=== PATIENT | female | born 1965 | race Caucasian/White ===

== ENCOUNTER 2018-12-18 23:01 | Emergency (ER) | payer BC ==
[2018-12-19] MEDS: CYCLOBENZAPRINE 10 MG TAB PO (01:27)
[2018-12-19] MEDS: KETOROLAC 30 MG INJ IM (01:37)
== END 2018-12-19 01:54 | disposition home or self-care (01) ==
LOC: FTE 23:01
DX: S13.4XXA Sprain of ligaments of cervical spine, initial encounter (principal); F17.210 Nicotine dependence, cigarettes, uncomplicated; V49.59XA Passenger injured in collision with other motor vehicles in traffic accident, initial encounter
CPT/HCPCS: 81025; 96372; 99284-25